=== PATIENT | male | born 1960 | race African-American/Black ===

== ENCOUNTER 2017-01-24 08:08 | Day surgery (SDC) | payer BC, OTHER ==
[2017-01-23 12:24] VITALS: BMI 27.1
--- NOTE | 2017-01-24 09:15 | HP ---
Satellite PMH - Chief Complaint Chief Complaint: left shoulder pain - Past Medical History Allergies/Adverse Reactions: Allergies Allergy/AdvReac Type Severity Reaction Status Date / Time hydrocodone [Hydrocodone] AdvReac Severe "HYPERVENTILATING,HEART Verified 08:41 AND MIND RACING, SWEATING" oxycodone AdvReac Severe "HYPERVENTILATING,HEART Verified 01/24/17 08:41 AND MIND RACING, SWEATING" - Current Medications Current Medications: Home Medications Medication Instructions Recorded Amlodipine Besylate [Norvasc -] 10 mg PO DAILY 07/04/16 Canagliflozin [Invokana] 100 mg PO DAILY 07/04/16 Cholecalciferol (Vitamin D3) 2,000 unit PO DAILY 07/04/16 [Vitamin D3] Ezetimibe/Simvastatin [Vytorin 1 tab PO HS 07/04/16 10-20 mg Tablet] Fenofibrate,Micronized [Antara] 30 mg PO DAILY 07/04/16 Metformin HCl 250 mg PO BID 07/04/16 Multivitamins [Multivit ([facility] 1 tab PO DAILY 07/04/16 Formulary)] Ramipril [Altace] 10 mg PO DAILY 07/04/16 Acetaminophen/Diphenhydramine 1 each PO PRN PRN 01/23/17 [Tylenol Pm Ex-Strength Caplet] Allopurinol [Zyloprim -] 300 mg PO DAILY 01/23/17 Naproxen/Esomeprazole Mag [Vimovo 1 each PO PRN PRN 01/23/17 Dr 500-20 mg Tablet] Acetaminophen with Codeine 1 each PO Q6H #50 tablet MDD 4 01/24/17 [Tylenol with Codeine #3 Tablet] Satellite Physical Exam - Physical Examination Vital Signs: Vital Signs Period Temp Pulse Resp BP Sys/Rosario Pulse Ox Last 24 Hr 98.2 F-98.2 F 74-74 20-20 132-132/76-76 96 General Appearance: Well Nourished, Well Developed, Alert & Oriented x3 ENT: Clear Lung: Normal air movement Heart: Regular rate & rhythm Extremities: Other (left shoulder -+ ttp, dec rom, + neer, + zaldivar, nvi) Neurological: Intact, Alert, Oriented Satellite Impression/Plan - Impression/Plan Impression: left shoulder impingement, rct Operative Procedure: left shoulder arthroscopy wiht SAD and possible RCR Date to be Performed: 01/24/17
[2017-01-24] MEDS ORDERED: ROPIVACAINE HCL 0.5% 30ML VIAL ONE (10:29)
[2017-01-24] MEDS ORDERED: MIDAZOLAM HCL 2 MG/2 ML SINGLE DOSE VIAL ONE ×2 (11:03)
[2017-01-24] MEDS ORDERED: PROPOFOL 20 ML ONE (11:27)
[2017-01-24] MEDS ORDERED: ceFAZolin SODIUM 1 GM VIAL IVPB ONE (12:04)
[2017-01-24] MEDS ORDERED: ceFAZolin SODIUM 1 GM VIAL ONE (12:10)
[2017-01-24] MEDS ORDERED: ONDANSETRON 4 MG/2 ML VIAL ONE (12:10)
[2017-01-24] MEDS ORDERED: DEXAMETHASONE SOD PHOSPHATE 4 MG/1 ML VIAL ONE (12:10)
[2017-01-24] MEDS ORDERED: ePHEDrine SULFATE 50 MG/1 ML AMPULE ONE (12:24)
--- NOTE | 2017-01-24 12:41 | OP ---
Operative Note - Note: Operative Date: 01/24/17 ([facility]) Pre-Operative Diagnosis: left shoulder impingement Operation: left shoulder arthroscopy with SAD Post-Operative Diagnosis: Same as Pre-op Surgeon: Khadar Thacker Marine Cargo Inspector: Marco Perez Anesthesiologist/RIGGING ENGINEER: Darin Cruz Anesthesia: General, Local Specimens Removed: shavings Estimated Blood Loss (mls): 5 Operative Report Dictated: Yes
[2017-01-24] MEDS ORDERED: ONDANSETRON 4 MG/2 ML VIAL IVPUSH PRN (13:50)
--- NOTE | 2017-01-24 13:57 | SPEC ---
DATE OF OPERATION: 01/24/2017 OPERATION: Arthroscopy, left shoulder, subacromial decompression and debridement. PREOPERATIVE DIAGNOSIS: Impingement syndrome, left shoulder. POSTOPERATIVE DIAGNOSIS: Impingement syndrome, left shoulder. SURGEON: Khadar Thacker M.D. NATURE PHOTOGRAPHER: AMY Brooks ANESTHESIA: Scalene plus general anesthesia. CLOSURE: 3-0 nylon. COMPLICATIONS: None. ESTIMATED BLOOD LOSS: Negligible. CONDITION: To recovery room in stable condition. DESCRIPTION OF PROCEDURE: Patient was taken to the operating room and scalene block, as well as general anesthesia, was administered by the anesthesiologist. IV Kefzol was administered prophylactically prior to the case. Patient was placed in the beach chair position with all prominences well padded. The left shoulder area was prepped and draped in the usual sterile fashion. First a diagnostic arthroscopy of the glenohumeral joint was performed and posterior porthole was made 2 fingerbreadths below the acromion, first with a No. 15 blade, followed by a blunt trocar. Circumferential exam of glenohumeral joint revealed: intact humeral head and glenoid articular cartilage. Intact labrum circumferentially. Intact biceps and biceps anchor. No loose bodies in the axillary pouch. Intact subscapularis to its insertion. Intact supra and infraspinatus minor. The fluid was drained from the shoulder and trocar was removed. The posterior trocar was redirected into the subacromial space. An accessory lateral porthole was made with blunt trocar. A bursectomy was performed using the ArthroCare device, exposing the outline of the acromion. The coracoacromial ligament was identified and detached off the anterior acromion and was visualized to drop further inferiorly and was then further debrided. An acromioplasty was then performed using the acromionizer sandy to the appropriate level, gaining excellent space for the rotator cuff. Looking inferiorly on the humeral head, soft tissue encasing the humeral head was debrided using the ArthroCare device, exposing a healthy rotator cuff tendon beneath. The rotator cuff was visualized from this vantage point to have no tears throughout. Fluid was drained from the shoulder. Portholes were closed using 3-0 nylon sutures, and sterile pressure dressing, followed by a sling, was applied. The patient was awoken from anesthesia and transferred to the recovery room in stable condition. [place] [id number]
[2017-01-24] MEDS ORDERED: LACTATED RINGERS SOLUTION 1,000 ML IV SCH (14:00)
[2017-01-24 15:02] VITALS: BP 138/76; PULSE 84
[2017-01-24 15:10] VITALS: TEMP 98.2
--- NOTE | 2017-01-27 13:39 | PATH ---
Surgical Pathology Report Patient Name: LES SHELTON [facility]. Rec. #: [id number] /Age/Gender: 1960 (Age: 56) / M Account: [id number] Location: [facility] SURGICAL Taken: 01/24/2017 Received: 01/24/2017 Reported: 01/27/2017 Physicians: Khadar Thacker M.D. Specimen(s) Received SHAVINGS LEFT SHOULDER Clinical History Internal derangement left shoulder Final Diagnosis LEFT SHOULDER, ARTHROSCOPIC SHAVING: PORTIONS OF SYNOVIUM, CARTILAGE, SKELETAL MUSCLE AND BONE CONSISTENT WITH ARTHROSCOPIC SHAVINGS. Electronically Signed Vadim Quick M.D. Gross Description Received in formalin, labeled "left shoulder shavings," is a 3.0 x 2.3 x 0.4 cm. aggregate of ahmadi-yellow soft tissue fragments. A hardware supplies sales representative portion is submitted in one cassette. /01/24/201701/24/2017
== END 2017-01-24 15:01 | disposition home or self-care (01) ==
LOC: JASU-SURG 08:08
PROVIDERS: ATTEND Orthopaedic Surgery
PROC: 0RBK4ZZ Excision of Left Shoulder Joint, Percutaneous Endoscopic Approach (ICD-10-PCS; principal; 2017-01-24 10:15)
DX: M75.42 Impingement syndrome of left shoulder (principal)
CPT/HCPCS: 88304-TC; 94760